=== PATIENT | female | born 1985 | race Caucasian/White ===

== ENCOUNTER 2022-10-14 17:27 | Emergency (ER) | payer BC, SELFPAY ==
[2022-10-14] VITALS (9 sets, daily range): BP systolic 121–150; BP diastolic 75–94; PULSE 65–94; RESP 16–24; TEMP 36.8; O2SAT 98–100; BMI 28.1
--- NOTE | 2022-10-14 17:36 | CTR_ITS ---
PROCEDURE INFORMATION: Exam: CT Head Without Contrast Exam date and time: 10/14/2022 5:28 PM Age: 37 years old Clinical indication: Altered mental status/memory loss and visual disturbance and weakness, extremity; Bilateral; Additional info: CVA like symptoms TECHNIQUE: Imaging protocol: Computed tomography of the head without contrast. Radiation optimization: All CT scans at this facility use at least one of these dose optimization techniques: automated exposure control; mA and/or kV adjustment per patient size (includes targeted exams where dose is matched to clinical indication); or iterative reconstruction. REPORTING DATA: Count of CT and Cardiac NM exams in prior 12 months: This patient has received 0 known CTs and 0 known cardiac nuclear medicine studies in the 12 months prior to the current study. COMPARISON: No relevant prior studies available. RADIATION DOSE METRICS: Total DLP (mGy-cm): 1130.79 FINDINGS: Brain: Normal. No hemorrhage. Unremarkable white matter. No mass effect. Cerebral ventricles: No ventriculomegaly. Paranasal sinuses: Visualized sinuses are unremarkable. No fluid levels. Mastoid air cells: Visualized mastoid air cells are well aerated. Bones/joints: Unremarkable. No acute fracture. Soft tissues: Unremarkable. CT/CT head wo con* [id number] IMPRESSION: No acute intracranial abnormality.
--- NOTE | 2022-10-14 17:39 | XRR_ITS ---
PROCEDURE INFORMATION: Exam: XR Chest Exam date and time: 10/14/2022 5:45 PM Age: 37 years old Clinical indication: Other: AMS; Additional info: Stroke like symptoms TECHNIQUE: Imaging protocol: Radiologic exam of the chest. Views: 1 view. COMPARISON: No relevant prior studies available. FINDINGS: Lungs: Unremarkable. No consolidation. Pleural spaces: Unremarkable. No pleural effusion. No pneumothorax. Heart/Mediastinum: Unremarkable. No cardiomegaly. Bones/joints: Unremarkable. XR/XR chest 1V portable [id number] IMPRESSION: No acute findings.
[2022-10-14 17:53] LABS: Glucose Point of Care 83 mg/dL (70-110)
--- NOTE | 2022-10-14 17:55 | PC.NURSE ---
DR HUMPHREY IN ROOM WITH PT DOING ASSESSMENT. DR. DAVIS AT BEDSIDE ALSO.
[2022-10-14 18:01] LABS: Basophils # 0.1 10^3/uL (0.0-0.1); Basophils % 0.5 %; Eosinophils # 0.1 10^3/uL (0.0-0.8); Eosinophils % 0.6 %; Hematocrit 41.3 % (37.0-47.0); Lymphocytes # 2.6 10^3/uL (0.8-4.8); Lymphocytes % 14.6 %; Mean Corpuscular HGB Conc 33.9 g/dL (30.0-36.0); Mean Corpuscular Hemoglobin 30.3 pg (28.0-34.0); Mean Corpuscular Volume 89.4 fl (81-99); Mean Platelet Volume 9.7 fL (7.4-10.4); Monocytes # 1.3 10^3/uL (0.2-0.9); Monocytes % 7.1 %; Neutrophils % 76.8 %; Nucleated Red Blood Cells % 0 %; Platelet Count 340 10^3/cmm (130-400); Red Blood Count 4.62 10^6/uL (4.1-5.3); Red Cell Distribution Width 12.5 % (12.1-15.1)
--- NOTE | 2022-10-14 18:02 | ED_ITS ---
HPI - Neuro Symptoms/Deficit General: Chief Complaint: Neuro Symptoms/Deficit Stated Complaint: STROKE LIKE SYMPTOMS Time Seen by Provider: 10/14/22 17:38 History of Present Illness: Patient presents to the ER by EMS with complaint of strokelike symptoms. Patient says she was riding in the car with her boyfriend when she had a sudden onset headache, hot flashes, and seeing spots, u carlos a EMS arrival they said she had some left-sided facial droop slurred speech and have to think a while before getting the right words to say symptom. EMS also stated her tongue was deviated to the left and they said her occipital headache is resolving. Patient was given 4 mg Zofran in route EMS blood glucose 105. Onset (ago): minute(s) History of same: No Severity: moderate Relieving factors: time Exacerbating factors: none Context: sudden onset On Anticoagulants: No Associated symptoms: Reports headache(s); Deny chest pain, nausea or vomiting Treatments Prior to Arrival: other medication (Zofran) Review of Systems General: Reports: 10 or more systems reviewed and unremarkable except in HPI and below Const: Denies: fever(s) or chills Eyes: Denies: change in vision ENMT: Denies: throat pain Card: Denies: chest pain, palpitations or irregular heart rhythm Resp: Denies: dyspnea, productive cough or non-productive cough GI: Denies: abdominal pain, nausea, vomiting or diarrhea Musc: Denies: neck pain or back pain Skin/Breast: Denies: rash or pruritus Neuro: Reports: headache(s), weakness in extremities and difficulty communicating thoughts Psych: Denies: anxiety or depression Endo: Denies: polyuria [facility] ED PFSH: Social History Smoking and tobacco status: never smoked Alcohol intake: never Physical Exam Const: COMMON NORMALS: average body habitus, patient oriented x3, no limitations, alert and well nourished HENMT: COMMON NORMALS: normocephalic, atraumatic, hearing grossly normal bilaterally, external ears normal, Normal external nose present and moist oral mucous membranes HEAD & SCALP: normocephalic and atraumatic NOSE: Normal external nose present EXTERNAL EAR: Yes external ears normal Eye: COMMON NORMALS: Equal, round and reactive pupils present, EOMs intact bilaterally, conjunctivae normal and no scleral icterus CONJUNCTIVA: Yes conjunctivae normal PUPIL: Yes Equal, round and reactive pupils present Neck/C-Spine: COMMON NORMALS: full ROM, no lymphadenopathy, supple, no JVD and Thyroid normal THYROID: Thyroid normal Chest: COMMONS NORMALS: normal inspection of the chest and normal palpation of entire chest wall Resp: COMMON NORMALS: normal respiratory effort, No retractions, No use of accessory muscles and clear to auscultation bilaterally AUSCULTATION: clear to auscultation bilaterally Cardio: COMMON NORMALS: no JVD, regular rate, regular rhythm, S1 normal heart sound present and S2 normal heart sound present RATE: regular rate RHYTHM: regular rhythm HEART SOUNDS: S1 normal heart sound present and S2 normal heart sound present GI: COMMON NORMALS: Normal to inspection, nondistended, normoactive bowel sounds present, Soft to palpation, non-tender, No hepatosplenomegaly present and no masses PALPATION: Yes Soft to palpation and Yes No hepatosplenomegaly present : COMMON NORMALS: Yes no CVA tenderness BLADDER/KIDNEY EXAM: Yes no CVA tenderness Back/Pelvis: COMMON NORMALS: no CVA tenderness Neuro: COMMON NORMALS: patient oriented x3, CN's II-XII intact bilaterally, moves all extremities, no focal motor deficits and no sensory deficits noted SENSORIUM/ORIENTATION: Yes alert Psych: COMMON NORMALS: mental status grossly normal, Normal thought process present, cooperative and normal affect SPEECH: Yes Other speech symptoms (Has to think about thoughts but does answer questions appropriately and fol) THOUGHT PROCESS: Normal thought process present Course Vital Signs: Vital signs: Vital Signs Temperature 98.2 F 10/14/22 17:35 Pulse Rate 66 10/14/22 21:30 Respiratory Rate 16 10/14/22 21:30 Blood Pressure 124/79 10/14/22 21:30 Pulse Oximetry 99 10/14/22 21:30 Oxygen Delivery Me thod 10/14/22 21:30 MDM - Neuro Symptoms/Deficit Medical Decision Making Patient was brought into the ER with strokelike symptoms. They became sudden onset headache hot flashes seeing spots per EMS patient had some left-sided facial droop, slurred speech and having to really think about what she was going to say and work on it to get it to come out. By the time she got to the ER her headache had resolved but she was still having to work on her speech and appeared to be very anxious. Code stroke was called while patient was in route. Dr. Richmond arrived in the ER and evaluated patient, does not think she is having a stroke at this time, thinks it may be a migraine with aura but suggests admission and further evaluation. After further history and physical exam of the patient lab work was reviewed which showed a white count of 18,000, urine showed 3+ protein and 4+ glucose, urine drug screen was negative, chest x-ray, head CT and head neck CTA were negative. These were discussed with the patient as well as Dr. Richmond's recommendations of inpatient further work-up. The patient symptoms have resolved and patient is all back to normal. Patient declined inpatient admission at this time due to having a daughter at home. It was verbalized to patient that without completing the work-up recommended by Dr. Richmond we could not assess her for the fullest extent of her possibilities. If she was to go home symptoms could return worsen. Patient verbalized understanding of this and the risk with leaving AGAINST MEDICAL ADVICE and still proceeded to sign out AMA Lab Data 10/14/22 17:53 10/14/22 17:[address] 10/14/22 17:36 IMPRESSION: No acute intracranial abnormality. Chest X-Ray 10/14/22 17:39 IMPRESSION: No acute findings. Head/Neck CTA 10/14/22 20:15 IMPRESSION: No large vessel stenosis or occlusion. IMPRESSION: No stenosis or occlusion. REFERENCES: NASCET CRITERIA. The degree of stenosis in the cervical segment of the internal carotid artery is based on NASCET criteria. Normal is no stenosis. Mild is less than 50% stenosis. Moderate is 50-69% stenosis. Severe is 70% to 99% stenosis. Total occlusion is no detectable patent lumen. Laboratory Results WBC 18.0 10^3/uL (4.0-10.0) H 10/14/22 17:53 RBC 4.62 10^6/uL (4.1-5.3) 10/14/22 17:53 Hgb 14.0 g/dL (11.5-15.3) 10/14/22 17:53 Hct 41.3 % (37.0-47.0) 10/14/22 17:53 MCV 89.4 fl (81-99) 10/14/22 17:53 MCH 30.3 pg (28.0-34.0) 10/14/22 17:53 MCHC 33.9 g/dL (30.0-36.0) 10/14/22 17:53 RDW 12.5 % (12.1-15.1) 10/14/22 17:53 Plt Count 340 10^3/cmm (130-400) 10/14/22 17:53 MPV 9.7 fL (7.4-10.4) 10/14/22 17:53 Neut % (Auto) 76.8 % 10/14/22 17:53 Lymph % (Auto) 14.6 % 10/14/22 17:53 [place] % (Auto) 7.1 % 10/14/22 17:53 Eos % (Auto) 0.6 % 10/14/22 17:53 Baso % (Auto) 0.5 % 10/14/22 17:53 Neut # (Auto) 13.80 10^3/uL (1.8-7.7) H 10/14/22 17:53 Lymph # (Auto) 2.6 10^3/uL (0.8-4.8) 10/14/22 17:53 [place] # (Auto) 1.3 10^3/uL (0.2-0.9) H 10/14/22 17:53 Eos # (Auto) 0.1 10^3/uL (0.0-0.8) 10/14/22 17:53 Baso # (Auto) 0.1 10^3/uL (0.0-0.1) 10/14/22 17:53 Nucleated RBC % (auto) 0 % 10/14/22 17:53 Nucleated RBCs # 0.0 /100WBC 10/14/22 17:53 ESR 2 mm/hr (0-15) 10/14/22 17:53 PT 13.50 SECONDS (12.1-14.9) 10/14/22 17:53 INR 1.00 (0.8-1.2) 10/14/22 17:53 Sodium 132 mmol/L (136-145) L 10/14/22 17:53 Potassium 3.7 mmol/L (3.5-5.1) 10/14/22 17:53 Chloride 103 mmol/L (98-107) 10/14/22 17:53 Carbon Dioxide 20 mmol/L (22-29) L 10/14/22 17:53 Anion Gap 12.7 (5-19) 10/14/22 17:53 BUN 7 mg/dL (6-20) 10/14/22 17:53 Creatinine 0.6 mg/dL (0.5-0.9) 10/14/22 17:53 GFR Calculation 113.8 mL/min (90-130) 10/14/22 17:53 Glucose 82 mg/dL (65-115) 10/14/22 17:53 POC Glucose 83 mg/dL (70-110) 10/14/22 17:48 Calculated Osmolality 271 mOsm/kg (285-295) L 10/14/22 17:53 Calcium 8.5 mg/dL (8.5-10.5) 10/14/22 17:53 Magnesium 1.8 mg/dL (1.7-2.3) 10/14/22 17:53 Total Bilirubin 0.5 mg/dL (0.15-1.2) 10/14/22 17:53 AST 14 U/L (0-32) 10/14/22 17:53 ALT 9 U/L (0-33) 10/14/22 17:53 Alkaline Phosphatase 64 U/L (35-105) 10/14/22 17:53 C-React Prot High Sens < 0.150 mg/dL (0.0-0.3) 10/14/22 17:53 Total Protein 6.6 g/dL (6.6-8.7) 10/14/22 17:53 Albumin 4.0 g/dL (3.5-5.2) 10/14/22 17:53 Globulin 2.6 g/dL (1.3-4.6) 10/14/22 17:53 Urine Color Yellow (Yellow) 10/14/22 18:33 Urine Appearance Sl hazy (CLEAR) A 10/14/22 18:33 Urine pH 6 (5-7) 10/14/22 18:33 Ur Specific [place] 1.005 (1.005-1.030) 10/14/22 18:33 Urine Protein 3+ (Negative) H 10/14/22 18:33 Urine Glucose (UA) 4+ (Normal) H 10/14/22 18:33 Urine Ketones Negative (Negative) 10/14/22 18:33 Urine Blood Neg (Negative) 10/14/22 18:33 Urine Nitrate Negative (Negative) 10/14/22 18:33 Urine Bilirubin Neg (Negative) 10/14/22 18:33 Urine Urobilinogen Neg mg/dL (Negative) 10/14/22 18:33 Ur Leukocyte Esterase Negative (Negative) 10/14/22 18:33 Urine RBC None /hpf (0-2) 10/14/22 18:33 Urine WBC None /hpf (0-5) 10/14/22 18:33 Ur Squamous Epith Cells Rare /hpf (0-5) 10/14/22 18:33 Amorphous Sediment 2+ /hpf 10/14/22 18:33 Urine Bacteria None /hpf (NONE) 10/14/22 18:33 Urine Opiates Screen Negative ng/mL (Negative) 10/14/22 18:33 Ur Barbiturates Screen Negative ng/mL (Negative) 10/14/22 18:33 Ur Phencyclidine Scrn Negative ng/mL (Negative) 10/14/22 18:33 Ur Amphetamines Screen Negative ng/mL (Negative) 10/14/22 18:33 U Benzodiazepines Scrn Negative ng/mL (Negative) 10/14/22 18:33 Urine Cocaine Screen Negative ng/mL (Negative) 10/14/22 18:33 U Marijuana (THC) Screen Negative ng/mL (Negative) 10/14/22 18:33 EKG Data EKG 1: I personally reviewed and interpreted this EKG as follows: EKG interpretation date: 10/14/22 EKG interpretation time: 17:47 Prior EKG tracings: not available for review Interpretation: EKG showed ventricular rate of 77 bpm, SC interval 137, QRS duration 85, QTc 424, possible left atrial enlargement, no ST T wave changes Discharge Plan Discharge Patient Disposition: Left Against Medical Advice Clinical Impression: Migraine with aura Condition: Stable Prescriptions: No Action No Known Home Medications Patient Instructions: Migraine Headache (ED), Against Medical Advice (ED) Coding Level of Care Code ED Braille Typist for Stephanie Breaux
[2022-10-14 18:25] LABS: Alanine Aminotransferase 9 U/L (0-33); Alkaline Phosphatase 64 U/L (35-105); Anion Gap 12.7 (5-19); Aspartate Amino Transferase 14 U/L (0-32); Blood Urea Nitrogen 7 mg/dL (6-20); CRP High Sensitivity Cardiac < 0.150 mg/dL (0.0-0.3); Calcium 8.5 mg/dL (8.5-10.5); Carbon Dioxide 20 mmol/L (22-29); Chloride 103 mmol/L (98-107); Globulin 2.6 g/dL (1.3-4.6); Glomerular Filtration Rate 113.8 mL/min (90-130); Glucose 82 mg/dL (65-115); Magnesium 1.8 mg/dL (1.7-2.3); Osmolality Calculated 271 mOsm/kg (285-295); Potassium 3.7 mmol/L (3.5-5.1); Sodium 132 mmol/L (136-145); Total Bilirubin 0.5 mg/dL (0.15-1.2); Total Protein 6.6 g/dL (6.6-8.7)
[2022-10-14 18:54] LABS: Erythrocyte Sedimentation Rate 2 mm/hr (0-15)
[2022-10-14 19:24] LABS: Add Urine Microscopic? YES; Bilirubin Urine Neg (Negative); Blood Urine Neg (Negative); Glucose Urine UA 4+ (Normal); Ketones Urine Negative (Negative); Leukocyte Esterase Urine Negative (Negative); Nitrate Urine Negative (Negative); Protein Urine 3+ (Negative); Specific Gravity, Urine 1.005 (1.005-1.030); Urine Appearance SL Hazy (CLEAR); Urine Color Yellow (Yellow); Urobilinogen Urine Neg (Negative); pH Urine 6 (5-7)
[2022-10-14 19:25] LABS: Add Urine Culture? No; Amorphous Sediment Urine 2+ /hpf; Amphetamines Screen Urine Negative (Negative); Barbiturates Screen Urine Negative (Negative); Benzodiazepines Screen Urine Negative (Negative); Cocaine Screen Urine Negative (Negative); Opiate Screen Urine Negative (Negative); PCP Screen Urine Negative (Negative); Squamous Epithelial Cell Urine RARE /hpf (0-5); THC Screen Urine Negative (Negative)
--- NOTE | 2022-10-14 20:12 | PM.SAN ---
Stroke Alert Activation ED Arrival Date: 10/14/22 ED Arrival Time: 17:35 Last Known Normal/at Baseline: < 1 hour ago Other Last Known Well Infomation: A stroke alert was activated at 1712 with the noticed that the patient was 15 minutes from arrival. I spoke with the nurse who took the message from EMS and learned that the patient had a severe headache, left-sided numbness and difficulty with word finding. She was taken straight to CAT scan. I left word with Dr. Burnette to call me and when I did not hear back I proceeded to the ER and evaluated the patient soon after she arrived back from CT I completed a full neurologic evaluation including standing the patient up at the bedside. She was anxious and tearful. She had a halting pattern of speech but improved with distraction. She did not have a visual field cut and her facial movements were symmetric. There was no drift of extended arms and I did not find any focal motor findings. She gave poor effort in both legs. Although her headache had cleared by the time I saw her, I thought that she probably had migraine with aura. I did not think that she needs tPA Stroke Alert Activated by: EMS Stroke Alert Activation Time: 17:12 Stroke MD @ Bedside Time: 17:44 NIH Stroke Scale Time: 17:45 NIH stroke score NIHSS: Level Of Consciousness - 1a: 0 Level Of Consciousness Questions - 1b: Both Correct Level Of Consciousness Commands - 1c: Both Correct Best Gaze - 2: Normal Visual Anne - 3: No Visual Loss Facial Palsy - 4: Normal Motor Arm Right - 5: No Drift Motor Arm Left - 5: No Drift Motor Leg Right - 6: Drift Motor Leg Left - 6: Drift Limb Ataxia - 7: Absent Sensory - 8: Normal Best Language - 9: No Aphasia Dysarthia - 10: Normal Extinction And Inattention - 11: 0 Score: Total Score: 2 Stroke Alert Data/Treatment Time to CT of Head: 17:28 CT Results Time: 18:06 CT Impression: Normal tPA Contraindication: tPA Contraindication: Treatment not indcated tPA Admin Prior to Arrival: No Patient & Family Educated on: Treament Plan Other Information: I recommended CTA because of the patient's sudden onset of a severe headache to rule out aneurysm and because of her somewhat atypical finding of bilateral leg weakness. Although that study is ordered and has not yet been completed at the time of this dictation. I talked with Dr. Burnette who indicates that the patient's symptoms are 80% resolved at this point, consistent with migraine with aura Critical Care Time Critical Care Time: 30 - 74 mins Additional information about critical care time: 35 minutes A&P Assessment and plan (1) Migraine with aura and with status migrainosus: Coding Level of Care Code Acute Code for Chg Fwd Diagnoses Migraine with aura and with status migrainosus G43.101 Time Spent (min) 35
--- NOTE | 2022-10-14 20:15 | CTR_ITS ---
PROCEDURE INFORMATION: Exam: CTA Head With Contrast, Arteriography Exam date and time: 10/14/2022 9:01 PM Age: 37 years old Clinical indication: Pain; Speech disturbance; Headache; Patient HX: C/O of occipatl BECERRIL. EMS reported patient to have left facial droop and slurred speech upon er arrival. ; Additional info: Stroke like symptoms TECHNIQUE: Imaging protocol: Computed tomographic angiography of the head with contrast. Exam focused on the arteries. 3D rendering (Not supervised by radiologist): MIP and/or 3D reconstructed images were created by the technologist. Radiation optimization: All CT scans at this facility use at least one of these dose optimization techniques: automated exposure control; mA and/or kV adjustment per patient size (includes targeted exams where dose is matched to clinical indication); or iterative reconstruction. Contrast material: OMNI 350; Contrast volume: 100 ml; Contrast route: INTRAVENOUS (IV); REPORTING DATA: Count of CT and Cardiac NM exams in prior 12 months: This patient has received [address] and 0 known cardiac nuclear medicine studies in the 12 months prior to the current study. COMPARISON: CT head wo con* [id number] 10/14/2022 5:28 PM RADIATION DOSE METRICS: Total DLP (mGy-cm): 464.23 FINDINGS: ANTERIOR CIRCULATION: Right internal carotid artery: Intracranial segment is patent with no significant stenosis. No aneurysm. Right middle cerebral artery: No occlusion or significant stenosis. No aneurysm. Right anterior cerebral artery: No occlusion or significant stenosis. No aneurysm. Left internal carotid artery: Intracranial segment is patent with no significant stenosis. No aneurysm. Left middle cerebral artery: No occlusion or significant stenosis. No aneurysm. Left anterior cerebral artery: No occlusion or significant stenosis. No aneurysm. POSTERIOR CIRCULATION: Right vertebral artery: No occlusion or significant stenosis. No aneurysm. Left vertebral artery: No occlusion or significant stenosis. No aneurysm. Basilar artery: No occlusion or significant stenosis. No aneurysm. Right posterior cerebral artery: No occlusion or significant stenosis. No aneurysm. Left posterior cerebral artery: No occlusion or significant stenosis. No aneurysm. Brain: No definite mass, mass effect, or midline shift. Cerebral ventricles: No ventriculomegaly. Bones/joints: Unremarkable. No acute fracture. Soft tissues: Unremarkable. PROCEDURE INFORMATION: Exam: CTA Neck With Contrast Exam date and time: 10/14/2022 9:01 PM Age: 37 years old Clinical indication: Pain; Speech disturbance; Headache; Patient HX: C/O of occipatl BECERRIL. EMS reported patient to have left facial droop and slurred speech upon er arrival. ; Additional info: Stroke like symptoms TECHNIQUE: Imaging protocol: Computed tomographic angiography of the neck with contrast. 3D rendering (Not supervised by radiologist): MIP and/or 3D reconstructed images were created by the technologist. Radiation optimization: All CT scans at this facility use at least one of these dose optimization techniques: automated exposure control; mA and/or kV adjustment per patient size (includes targeted exams where dose is matched to clinical indication); or iterative reconstruction. Contrast material: OMNI 350; Contrast volume: 100 ml; Contrast route: INTRAVENOUS (IV); REPORTING DATA: Count of CT and Cardiac NM exams in prior 12 months: This patient has received [address] and 0 known cardiac nuclear medicine studies in the 12 months prior to the current study. COMPARISON: CT head wo con* [id number] 10/14/2022 5:28 PM RADIATION DOSE METRICS: Total DLP (mGy-cm): 464.23 FINDINGS: Right common carotid artery: No stenosis. No dissection or occlusion. Right internal carotid artery: No stenosis of the extracranial segment. No dissection or occlusion. Right external carotid artery: No occlusion or stenosis of the origin. Left common carotid artery: No stenosis. No dissection or occlusion. Left internal carotid artery: No stenosis of the extracranial segment. No dissection or occlusion. Left external carotid artery: No occlusion or stenosis of the origin. Right vertebral artery: No stenosis. No dissection or occlusion. Left vertebral artery: No stenosis. No dissection or occlusion. Soft tissues: Normal. No significant soft tissue swelling. Bones/joints: No acute fracture. CT/CT angio headneck* [id number] IMPRESSION: No large vessel stenosis or occlusion. IMPRESSION: No stenosis or occlusion. REFERENCES: NASCET CRITERIA. The degree of stenosis in the cervical segment of the internal carotid artery is based on NASCET criteria. Normal is no stenosis. Mild is less than 50% stenosis. Moderate is 50-69% stenosis. Severe is 70% to 99% stenosis. Total occlusion is no detectable patent lumen.
[2022-10-14] MEDS: iohexol 350 mg/mL 500 mL Btl (per mL) IV (21:06)
--- NOTE | 2022-10-23 10:37 | DCPLANNER ---
interactive account manager called patient due to no primary care physician - no answer at this time
== END 2022-10-14 22:08 | disposition left against medical advice (07) ==
PROVIDERS: Emergency Provider Emergency Medicine
DX: G43.109 Migraine with aura, not intractable, without status migrainosus (principal); Z53.21 Procedure and treatment not carried out due to patient leaving prior to being seen by health care provider
CPT/HCPCS: 36416; 70450; 70496; 70498; 71045; 80053; 80306; 81001; 82962; 83735; 85025; 85610; 85651; 86141; 99285; Q9967